=== PATIENT | female | born 1960 | race Caucasian/White ===

== ENCOUNTER 2016-12-10 15:37 | Inpatient (IN) | payer MEDICAID ==
[~2016-12-10] VITALS: Ht 162.6 cm; Wt 89.9 kg
[~2016-12-10 15:37] MED LIST: ALPR0.02 PO; ALPR1TAB2 PO; DOXY100C2 PO; ESCI10TA PO; ESCI10TA10 PO; ESCI5SOL2 PO; FLUT1DIS3 INH; HYDR-3240 PO; HYDR-3341 PO; METH4TAB2 PO; METO25TA9 PO; NICO1PAT27 TD; RISP1DIS PO; TRAZ100T15 PO; albuterol inhaler INH
[2016-12-10] MEDS ORDERED: METOCLOPRAMIDE 5 MG/ML, 2ML ONE (15:45)
[2016-12-10] MEDS ORDERED: SODIUM CHLORIDE 0.9% 1,000ML IVBOLUS ONE ×3 (16:00→19:00)
[2016-12-10] MEDS ORDERED: METOCLOPRAMIDE 5 MG/ML, 2ML IVPush ONE (16:00)
[2016-12-10 16:09] LABS: HEMOGLOBIN 16.5 g/dL (11.7-16.4)
[2016-12-10 16:22] LABS: ASPARTATE AMINO TRANSFERASE 19 U/L (15-37); BLOOD UREA NITROGEN 9 mg/dL (7-18)
[2016-12-10 16:24] LABS: ACETAMINOPHEN < 2 mcg/mL (10-30)
[2016-12-10] MEDS ORDERED: RISP3TAB24 PO (16:30)
[2016-12-10] MEDS ORDERED: TRAZ50TA18 PO (16:30)
[2016-12-10 17:13] LABS: DAU SCREEN DISCLAIMER
[2016-12-10] MEDS ORDERED: ONDANSETRON 2MG/ML, 2ML IVP PRN (20:30)
[2016-12-10] MEDS ORDERED: MAGNESIUM SULFATE PMX 2GM/50ML 50 ML IV ONE (20:30)
[2016-12-10] MEDS ORDERED: BISACODYL 10 MG SUPP PR PRN (20:30)
[2016-12-10] MEDS ORDERED: POTASSIUM CHLORIDE 20 MEQ TAB.ER.PRT PO ONE (20:30)
[2016-12-10] MEDS ORDERED: DOCUSATE 100 MG CAPSULE PO PRN (20:30)
[2016-12-10] MEDS ORDERED: POLYETHYLENE GLYCOL 17 GM PACKET PO PRN (20:30)
[2016-12-10 21:49] VITALS: BP 113/73
[2016-12-10] MEDS: ENOXAPARIN 40 MG/0.4 ML SQ SCH (23:01)
[2016-12-10] MEDS: SODIUM CHLORIDE 0.9% 1,000 ML IV SCH (23:02)
[2016-12-11] MEDS: SODIUM CHLORIDE 0.9% 1,000 ML IV SCH (03:32)
[2016-12-11 04:41] LABS: HEMOGLOBIN 12.9 g/dL (11.7-16.4)
[2016-12-11 04:43] LABS: BLOOD UREA NITROGEN 5 mg/dL (7-18)
[2016-12-11 18:04] LABS: PATH.CAST-FLAG NOT PRESENT; SPERM-FLAG NOT PRESENT; SRC-FLAG NOT PRESENT; XTAL-FLAG NOT PRESENT; YLC-FLAG NOT PRESENT
[2016-12-11 19:18] VITALS: BP 133/85
[2016-12-11] MEDS: ENOXAPARIN 40 MG/0.4 ML SQ SCH (20:30)
[2016-12-12 08:27] VITALS: BP 134/83
[2016-12-12 20:00] VITALS: BP 132/88
[2016-12-12] MEDS: ENOXAPARIN 40 MG/0.4 ML SQ SCH (20:30)
[2016-12-13 08:14] VITALS: BP 124/81
[2016-12-13] MEDS: LORazepam 0.5MG TABLET PO PRN ×2 (15:54→20:33)
[2016-12-13 19:39] VITALS: BP 125/86
[2016-12-13] MEDS: ENOXAPARIN 40 MG/0.4 ML SQ SCH (20:30)
[2016-12-14 07:56] VITALS: BP 136/92
[2016-12-14] MEDS: LORazepam 0.5MG TABLET PO PRN ×2 (08:15→15:31)
[2016-12-14] MEDS ORDERED: LORA-445 PO (16:51)
[2016-12-14 19:37] VITALS: BP 127/90
== END 2016-12-14 20:00 | DRG 917 ==
LOC: ED 16:39 → EDIP 18:52 → CCU 21:43 → 3E 12-11 11:46
PROC: 02HV33Z Insertion of Infusion Device into Superior Vena Cava, Percutaneous Approach (ICD-10-PCS; principal; 2016-12-10)
PROC: B548ZZA Ultrasonography of Superior Vena Cava, Guidance (ICD-10-PCS; 2016-12-10)
PROC: 0T9B70Z Drainage of Bladder with Drainage Device, Via Natural or Artificial Opening (ICD-10-PCS; 2016-12-11)
DX: T42.4X2A Poisoning by benzodiazepines, intentional self-harm, initial encounter (principal); G92 Toxic encephalopathy; F41.9 Anxiety disorder, unspecified; F32.9 Major depressive disorder, single episode, unspecified; G89.29 Other chronic pain; M19.90 Unspecified osteoarthritis, unspecified site; M41.9 Scoliosis, unspecified; I10 Essential (primary) hypertension; E87.6 Hypokalemia; E86.1 Hypovolemia; B18.2 Chronic viral hepatitis C; I95.9 Hypotension, unspecified; M54.9 Dorsalgia, unspecified; F17.210 Nicotine dependence, cigarettes, uncomplicated; R73.9 Hyperglycemia, unspecified; I45.81 Long QT syndrome; Z82.49 Family history of ischemic heart disease and other diseases of the circulatory system; Y92.89 Other specified places as the place of occurrence of the external cause; Z82.61 Family history of arthritis; Z84.89 Family history of other specified conditions; Z90.49 Acquired absence of other specified parts of digestive tract; Z98.890 Other specified postprocedural states; Z88.1 Allergy status to other antibiotic agents; Z88.0 Allergy status to penicillin; Z79.899 Other long term (current) drug therapy
CPT/HCPCS: 36415; 36556; 71010; 80048; 80053; 80307; 80329; 81001; 82533; 83036; 85025; 87081; 87086; 93005; 96361; 96374; J1650; G0480; J2765; J3475; J7030

== ENCOUNTER → 2018-07-27 | Outpatient (CLI) | payer MEDICAID ==
[~2018-07-27] MED LIST changes: +LORA-445 PO; +METO-282 PO; -METO25TA9 PO; +RISP3TAB24 PO; +TRAZ-136 PO; +TRAZ-137 PO; -TRAZ100T15 PO
== END | disposition home or self-care (01) ==
LOC: RAD 12:48
PROVIDERS: ATTEND Internal Medicine
DX: K80.20 Calculus of gallbladder without cholecystitis without obstruction (principal); R59.1 Generalized enlarged lymph nodes; J98.11 Atelectasis
CPT/HCPCS: 71250